=== PATIENT | female | born 1985 | race Caucasian/White ===

== ENCOUNTER 2022-08-27 08:26 | Emergency (ER) | payer SELFPAY ==
[~2022-08-27] VITALS: Ht 149.9 cm; Wt 80.0 kg
[2022-08-27 08:45] VITALS: BP 135/87
== END 2022-08-27 10:45 | disposition home or self-care (01) ==
LOC: ER 08:26
DX: J02.9 Acute pharyngitis, unspecified (principal)
CPT/HCPCS: 99281